=== PATIENT | female | born 1970 | race Caucasian/White ===

== ENCOUNTER 2017-02-13 13:13 | Observation (INO) | payer MEDICAID ==
--- NOTE | 2017-02-13 14:07 | CPEKG ---
Heart Rate: 69 RR Interval: 870 P-R Interval: 180 QRSD Interval: 64 QT Interval: 392 QTC Interval: 420 P Neihart: 46 QRS Neihart: 15 T Wave Neihart: 35 EKG Severity - NORMAL ECG - EKG Impression: SINUS RHYTHM Electronically Signed By: Michael Werner 13-Feb-2017 15:37:33
--- NOTE | 2017-02-13 14:19 | EDPHY ---
H & P Smoking Status: Never smoked <AlphonsoMichael Jose - Last Filed: 02/13/17 14:32> <Joanna Smith - Last Filed: 02/13/17 16:29> Time Seen by Provider: 02/13/17 14:08 HPI/ROS: Chief complaint. Chest pain, shortness of breath HPI. 46-year-old female presents with chest pain that began at about 8:00 p.m. last night. She describes as tightness with radiation to right neck and right shoulder and now to the left shoulder. Some shortness of breath. She felt flushed and warm. She has had vomiting x4 but no diarrhea. She felt "drained" yesterday. There has been quite a bit of stress in the family this past week. No unusual leg pain or swelling. She has not had similar symptoms before. She has a gastric sleeve that was pale placed 3 years ago but she has not had any issues with it. Her discomfort is not worse with breathing, movement, exertion , position ROS Constitutional. no fever/chills, no weakness Eyes. no problems with vision ENT. no sore throat, no nasal drainage Cardiovascular. Chest discomfort Respiratory. Shortness of breath Abdominal. Vomiting . no problems urinating MS. no calf pain/swelling, no neck/back pain, no joint pain Skin. no rash Lymph. no swollen glands Neuro. no headache, no dizziness, no difficulty walking or with speech (Michael Werner) Past Medical/Surgical History: Past medical history gastric sleeve and IUD No significant family history for early coronary artery disease (Michael Werner) Social History: , nonsmoker, no alk (Michael Werner) Physical Exam: General Appearance: Alert pleasant well-developed female mild distress vital signs are stable Eyes: Pupils equal and round no pallor or injection. ENT, Mouth: Mucous membranes are moist. Respiratory: There are no retractions, lungs are clear to auscultation. Cardiovascular: Regular rate and rhythm. Gastrointestinal: Abdomen is soft and nontender, no masses, bowel sounds normal. Neurological: Awake and alert, sensory and motor exams grossly normal. Skin: Warm and dry, no rashes. Musculoskeletal: Neck is supple nontender. Extremities symmetrical, full range of motion. Psychiatric: Patient is oriented X 3, there is no agitation. (Alphonso,Michael S) Constitutional: Initial Vital Signs Temperature (C) 36.6 C 02/13/17 13:17 Heart Rate 85 02/13/17 13:17 Respiratory Rate 18 02/13/17 13:17 Blood Pressure 115/86 H 02/13/17 13:17 O2 Sat (%) 97 02/13/17 13:17 O2 Delivery Mode Room Air Allergies/Adverse Reactions: No Known Allergies Allergy (Unverified 02/13/17 13:17) Home Medications: Medication Instructions Recorded NK [No Known Home Meds] 02/13/17 Medical Decision Making <Michael Werner - Last Filed: 02/13/17 14:32> <Joanna Smith - Last Filed: 02/13/17 16:29> - Diagnostics EKG Interpretation: EKG interpreted by me shows normal sinus rhythm with normal interval and axis. QRS is normal there is no significant ST elevation or depression. No arrhythmia. The rate is 69 (Michael Werner) Imaging Results: Imaging Impressions Chest/Thorax CTA 02/13/17 14:35 Impression: 1. No evidence of thrombopulmonary embolic disease. 2. Mild bronchitis. No pneumonia or effusion. Findings discussed with Emergency Department physician, Dr. Joanna Smith at 15:45. Procedures: IV normal saline, monitor (Michael Werner) ED Course/Re-evaluation: 1500: Care of this patient was transferred to [place] by Dr. Werner at change of shift. 1609: Lab and imaging results reviewed by me: Labs are within normal ranges, D- dimer is negative. CTA indicated mild bronchitis but no additional acute findings. 1618: At the time of my evaluation, the patient is resting comfortably but continues to complain of episodic peristernal chest pain associated with lightheadedness, headache, and diaphoresis; 3-4 episodes today each lasting for 5-10 minutes. She denies any complaints suspicious for infection - no cough, fever, chills, recent cold or flu symptoms. I discussed lab and imaging results with the patient. I did share with her that her chest discomfort may be due to bronchitis. However, given the radiation of her pain and associated nausea and diaphoresis, I suggested that she be admitted for cardiac observation. She is agreeable to this. 3ml IH DuoNeb administered. 324mg PO Aspirin administered. 1628: Consultation with Dr. Bryan Orozco, hospitalist, who accepts admission. ( Joanna Smith) Differential Diagnosis: I considered acute coronary syndrome, pulmonary embolus, pneumothorax, displacement of gastric sleeve, pancreatitis (Michael Werner) - Data Points Laboratory Results: Laboratory Results 02/13/17 14:05 02/13/17 14:05 02/13/17 02/13/17 02/13/17 14:05 14:05 14:05 WBC RBC Hgb Hct MCV MCH MCHC RDW Plt Count MPV Neut % (Auto) Lymph % (Auto) [place] % (Auto) Eos % (Auto) Baso % (Auto) Nucleat RBC Rel Count Absolute Neuts (auto) Absolute Lymphs (auto) Absolute Monos (auto) Absolute Eos (auto) Absolute Basos (auto) Absolute Nucleated RBC Immature Gran % Immature Gran # D-Dimer < 0.27 ug/mLFEU ug/mLFEU (0.00-0.50) Sodium 141 mEq/L mEq/L (134-144) Potassium 4.2 mEq/L mEq/L (3.5-5.2) Chloride 106 mEq/L mEq/L (97-110) Carbon Dioxide 25 mEq/l mEq/l (22-31) Anion Gap 10 mEq/L mEq/L (8-16) BUN 12 mg/dL mg/dL (7-23) Creatinine 0.9 mg/dL mg/dL (0.6-1.0) Estimated GFR > 60 Glucose 93 mg/dL mg/dL (70-100) Calcium 9.5 mg/dL mg/dL (8.5-10.4) Troponin I < 0.012 ng/mL ng/mL (0-0.034) Lipase 69.0 IU/L IU/L (23-300) Beta HCG, Qual NEGATIVE 02/13/17 14:05 WBC 6.44 10^3/uL 10^3/uL (3.80-9.50) RBC 4.91 10^6/uL 10^6/uL (4.18-5.33) Hgb 15.0 g/dL g/dL (12.6-16.3) Hct 44.6 % % (38.0-47.0) MCV 90.8 fL fL (81.5-99.8) MCH 30.5 pg pg (27.9-34.1) MCHC 33.6 g/dL g/dL (32.4-36.7) RDW 12.9 % % (11.5-15.2) Plt Count 307 10^3/uL 10^3/uL (150-400) MPV 8.8 fL fL (8.7-11.7) Neut % (Auto) 59.4 % % (39.3-74.2) Lymph % (Auto) 32.1 % % (15.0-45.0) [place] % (Auto) 6.2 % % (4.5-13.0) Eos % (Auto) 1.4 % % (0.6-7.6) Baso % (Auto) 0.6 % % (0.3-1.7) Nucleat RBC Rel Count 0.0 % % (0.0-0.2) Absolute Neuts (auto) 3.82 10^3/uL 10^3/uL (1.70-6.50) Absolute Lymphs (auto) 2.07 10^3/uL 10^3/uL (1.00-3.00) Absolute Monos (auto) 0.40 10^3/uL 10^3/uL (0.30-0.80) Absolute Eos (auto) 0.09 10^3/uL 10^3/uL (0.03-0.40) Absolute Basos (auto) 0.04 10^3/uL 10^3/uL (0.02-0.10) Absolute Nucleated RBC 0.00 10^3/uL 10^3/uL (0-0.01) Immature Gran % 0.3 % % (0.0-1.1) Immature Gran # 0.02 10^3/uL 10^3/uL (0.00-0.10) D-Dimer Sodium Potassium Chloride Carbon Dioxide Anion Gap BUN Creatinine Estimated GFR Glucose Calcium Troponin I Lipase Beta HCG, Qual Medications Given: Discontinued Medications Sodium Chloride (Ns) 1,000 mls @ 0 mls/hr IV ONCE ONE PRN Reason: Wide Open Stop: 02/13/17 14:36 Last Admin: 02/13/17 14:47 Dose: 1,000 mls Departure <Michael Werner S - Last Filed: 02/13/17 14:32> <Joanna Smith - Last Filed: 02/13/17 16:29> - Departure Disposition: [facility] Inpatient Acute Clinical Impression: Bronchitis, Atypical chest pain Condition: Fair Referrals: NONE *PRIMARY CARE P,. [Primary Care Provider] - As per Instructions Report Scribed for: Joanna Smith Report Scribed by: Naina Bergman Date of Report: 02/13/17 Time of Report: 15:04 <Joanna Smith - Last Filed: 02/13/17 16:29>
[2017-02-13] MEDS ORDERED: NS 1,000 ML IV ONE (14:35)
[2017-02-13 14:43] LABS: % IMMATURE GRANULYOCYTES 0.3 % (0.0-1.1); ABSOLUTE IMMATURE GRANULOCYTES 0.02 10^3/uL (0.00-0.10); ADD DIFF? NO; ADD MORPH? NO; ADD SCAN? NO; ATYPICAL LYMPHOCYTE FLAG 10 (0-99); FRAGMENT RBC FLAG 0 (0-99); HEMATOCRIT 44.6 % (38.0-47.0); LEFT SHIFT FLG 0 (0-99); LIPEMIA HEMOLYSIS FLAG 80 (0-99); MEAN CELL HEMOGLOBIN 30.5 pg (27.9-34.1); MEAN CELL HEMOGLOBIN CONCENTR. 33.6 g/dL (32.4-36.7); MEAN CELL VOLUME 90.8 fL (81.5-99.8); MEAN PLATELET VOLUME 8.8 fL (8.7-11.7); PLATELET CLUMPS FLAG 0 (0-99); PLATELET COUNT 307 10^3/uL (150-400); RED BLOOD CELL COUNT 4.91 10^6/uL (4.18-5.33); RED CELL DISTRIBUTION WIDTH 12.9 % (11.5-15.2)
[2017-02-13 14:49] LABS: ANION GAP 10 mEq/L (8-16); CALCIUM 9.5 mg/dL (8.5-10.4); CARBON DIOXIDE 25 mEq/l (22-31); CHLORIDE 106 mEq/L (97-110); CREATININE 0.9 mg/dL (0.6-1.0); GLOMERULAR FILTRATION RATE > 60; GLUCOSE 93 mg/dL (70-100); POTASSIUM 4.2 mEq/L (3.5-5.2); SODIUM 141 mEq/L (134-144)
[2017-02-13 15:00] LABS: TROPONIN I < 0.012 ng/mL (0-0.034)
[2017-02-13] MEDS ORDERED: ASPIRIN 81 MG CHEWABLE TAB PO ONE (16:22)
[2017-02-13] MEDS ORDERED: ALBUTEROL 3 ML DEYVIAL IH ONE (16:22)
--- NOTE | 2017-02-13 16:52 | PDGENHP ---
History and Physical - Chief Complaint Chest pain - History of Present Illness This is a 46-year-old female with no cardiac risk factors other than a 20 pack- year smoking history but quit a few years back presents to the emergency department with that chest pain. Pain is described as a substernal pressure I was localized and started last night while sitting and finishing her dinner. She does feel like food gets stuck when she swallows. At 1st when the pain started she was not able to take a deep breath. Last night after she had the episode of pain she vomited 4 times which improved her symptoms. She denies any GERD. Today she had recurrent chest pressure and decided to come to the emergency department for further evaluation. History Information - Allergies/Home Medication List Allergies/Adverse Reactions: No Known Allergies Allergy (Unverified 02/13/17 13:17) Home Medications: NK [No Known Home Meds] 02/13/17 [Last Taken Unknown] I have personally reviewed and updated: family history, medical history, social history, surgical history - Past Medical History Additional medical history: Gastric sleeve done in 2012 - Social History Smoking Status: Former smoker (20 pack year smoking history) Alcohol Use: Occasionally Drug Use: None Review of Systems ROS: 10pt was reviewed & negative except for what was stated in HPI & below Physical Exam Temp Pulse Resp BP Pulse Ox 36.6 C 66 17 111/62 94 02/13/17 13:17 02/13/17 14:00 02/13/17 14:00 02/13/17 14:00 02/13/17 14:00 Constitutional: no apparent distress, appears nourished, not in pain Eyes: PERRL, anicteric sclera, EOMI Ears, Nose, Mouth, Throat: moist mucous membranes, hearing normal, ears appear normal, no oral mucosal ulcers Cardiovascular: regular rate and rhythym, no murmur, rub, or gallop, No edema Respiratory: no respiratory distress, no rales or rhonchi, clear to auscultation , No rhonchi Gastrointestinal: normoactive bowel sounds, soft, non-tender abdomen, no palpable masses, No guarding, No rebound Genitourinary: no bladder fullness, no bladder tenderness Skin: warm, normal color, no rashes or abrasions, no fluctuance, no induration, No mottled Musculoskeletal: full muscle strength, no muscle tenderness, normal joint ROM, no joint effusions Neurologic: AAOx3, CN II-XII Intact, No facial droop Psychiatric: interacting appropriately, not anxious, not encephalopathic, thought process linear Lab Data & Imaging Review 02/13/17 14:05 02/13/17 14:05 WBC 6.44 10^3/uL (3.80-9.50) 02/13/17 14:05 RBC 4.91 10^6/uL (4.18-5.33) 02/13/17 14:05 Hgb 15.0 g/dL (12.6-16.3) 02/13/17 14:05 Hct 44.6 % (38.0-47.0) 02/13/17 14:05 MCV 90.8 fL (81.5-99.8) 02/13/17 14:05 MCH 30.5 pg (27.9-34.1) 02/13/17 14:05 MCHC 33.6 g/dL (32.4-36.7) 02/13/17 14:05 RDW 12.9 % (11.5-15.2) 02/13/17 14:05 Plt Count 307 10^3/uL (150-400) 02/13/17 14:05 MPV 8.8 fL (8.7-11.7) 02/13/17 14:05 Neut % (Auto) 59.4 % (39.3-74.2) 02/13/17 14:05 Lymph % (Auto) 32.1 % (15.0-45.0) 02/13/17 14:05 [place] % (Auto) 6.2 % (4.5-13.0) 02/13/17 14:05 Eos % (Auto) 1.4 % (0.6-7.6) 02/13/17 14:05 Baso % (Auto) 0.6 % (0.3-1.7) 02/13/17 14:05 Nucleat RBC Rel Count 0.0 % (0.0-0.2) 02/13/17 14:05 Absolute Neuts (auto) 3.82 10^3/uL (1.70-6.50) 02/13/17 14:05 Absolute Lymphs (auto) 2.07 10^3/uL (1.00-3.00) 02/13/17 14:05 Absolute Monos (auto) 0.40 10^3/uL (0.30-0.80) 02/13/17 14:05 Absolute Eos (auto) 0.09 10^3/uL (0.03-0.40) 02/13/17 14:05 Absolute Basos (auto) 0.04 10^3/uL (0.02-0.10) 02/13/17 14:05 Absolute Nucleated RBC 0.00 10^3/uL (0-0.01) 02/13/17 14:05 Immature Gran % 0.3 % (0.0-1.1) 02/13/17 14:05 Immature Gran # 0.02 10^3/uL (0.00-0.10) 02/13/17 14:05 D-Dimer < 0.27 ug/mLFEU (0.00-0.50) 02/13/17 14:05 Sodium 141 mEq/L (134-144) 02/13/17 14:05 Potassium 4.2 mEq/L (3.5-5.2) 02/13/17 14:05 Chloride 106 mEq/L (97-110) 02/13/17 14:05 Carbon Dioxide 25 mEq/l (22-31) 02/13/17 14:05 Anion Gap 10 mEq/L (8-16) 02/13/17 14:05 BUN 12 mg/dL (7-23) 02/13/17 14:05 Creatinine 0.9 mg/dL (0.6-1.0) 02/13/17 14:05 Estimated GFR > 60 02/13/17 14:05 Glucose 93 mg/dL (70-100) 02/13/17 14:05 Calcium 9.5 mg/dL (8.5-10.4) 02/13/17 14:05 Troponin I < 0.012 ng/mL (0-0.034) 02/13/17 14:05 Lipase 69.0 IU/L (23-300) 02/13/17 14:05 Beta HCG, Qual NEGATIVE 02/13/17 14:05 Imaging Review: CT of the chest was reviewed: Impression: 1. No evidence of thrombopulmonary embolic disease. 2. Mild bronchitis. No pneumonia or effusion. Visualized and Interpreted EKG results: Yes EKG Interpretation: Positive for: normal sinsus rhythm (69 beats per minute). Negative for: ST elevation, ST depression Assessment & Plan Assessment: This is a 46-year-old female with history of gastric sleeve procedure done 4 years ago presents with #substernal chest pain that sounds like esophageal spasm or stricture and less likely cardiac in etiology in the setting of negative troponin and normal EKG -trial GI cocktail -upper GI series and consider GI consultation for endoscopy as indicated Disposition: The patient will be placed in observation. Anticipated length of stay is less than 24 hours.
[2017-02-13] MEDS ORDERED: PROMETHAZINE HCL 25 MG/ML INJ IVP PRN (17:00)
[2017-02-13] MEDS ORDERED: ONDANSETRON DISINTEGRATING 4 MG TAB PO PRN (17:00)
[2017-02-13] MEDS ORDERED: ACETAMINOPHEN 325 MG TAB PO PRN (17:00)
[2017-02-13] MEDS ORDERED: LIDOCAINE 2% VISCOUS 15 ML UDCUP PO ONE (17:05)
[2017-02-13] MEDS ORDERED: HYOSCYAMINE SULFATE 0.125 MG TAB PO ONE (17:05)
[2017-02-13] MEDS ORDERED: MAG HYDROX/AL HYDROX/SIMETH 30 ML UDCUP PO ONE (17:05)
[2017-02-13] MEDS ORDERED: KETOROLAC 15 MG/1 ML SDV IVP ONE (22:15)
[2017-02-13] MEDS ORDERED: oxyCODONE IR 5 MG TAB PO PRN (23:00)
[2017-02-13] MEDS: oxyCODONE IR 5 MG TAB PO PRN (23:30)
[2017-02-14] MEDS: oxyCODONE IR 5 MG TAB PO PRN ×2 (03:28→10:58)
[2017-02-14] MEDS ORDERED: LIDOCAINE 2% VISCOUS 15 ML UDCUP PO ONE (11:23)
[2017-02-14] MEDS ORDERED: MAG HYDROX/AL HYDROX/SIMETH 30 ML UDCUP PO ONE (11:23)
[2017-02-14] MEDS ORDERED: HYOSCYAMINE SULFATE 0.125 MG TAB PO ONE (11:23)
[2017-02-14] MEDS ORDERED: FAMOTIDINE 20 MG TAB PO SCH (11:30)
[2017-02-14 13:11] VITALS: BP 97/73; PULSE 59; RESP 18; TEMP 98.3; O2SAT 93
--- NOTE | 2017-02-15 05:39 | GDS ---
[f rep st] DISCHARGE SUMMARY DISCHARGE DIAGNOSES: 1. Atypical chest pain. 2. Moderate hiatal hernia. 3. History of gastric sleeve procedure in 2012. 4. Esophagitis. CONSULTANTS: None. IMAGING STUDIES/PROCEDURES: 1. CT pulmonary angiogram performed February 13, 2017, was negative for pulmonary embolism and showed ju st mild bronchitis. No pneumonia or effusions were noted. 2. Upper GI study February 13, 2017 revealed evidence of a prior gastric sleeve procedure without strict ure. There was also a moderate size hiatal hernia with free reflux into the distal esophagus with as sociated esophagitis. HISTORY: For details, please see the history and physical dated January 2017. In brief, the patient is a 46-year-old female with a history of prior gastric sleeve procedure, as well as a 20 pack-year sm oking history presents to the emergency department with substernal chest pain. She was admitted to the hospital for further evaluation. HOSPITAL COURSE: Patient was admitted to the observation unit. Her pain sounded more considered co nsistent with a gastrointestinal etiology rather than cardiac. She had a nonischemic EKG. Troponin was negative x2. CT angiogram is negative for PE. She underwent an upper GI series which revealed a moderate hiatal hernia with active reflux and evidence of esophagitis. This is most likely the s ource of her substernal chest pain. She started on a proton pump inhibitor and it is recommended sh e have both GI and General Surgery follow up in the outpatient setting to fully manage her esophagit is and consider repair of her symptomatic hiatal hernia. She was treated successfully with GI cockt ail and Pepcid with improvement in her symptoms. DISPOSITION: Patient is discharged home in stable condition. FOLLOWUP: 1. , GI [facility], for further management of her esophagitis related to her hiat al hernia. 2. Dr. Nida Barrera, general surgery, to discuss possible repair of her symptomatic hiatal hernia. DISCHARGE MEDICATIONS: Please see [facility] for complete updated outpatient medication list. New medications on discharge include: Protonix 40 mg p.o. daily, #90, no refills and senna docusate 1 p.o. b.i.d. p.r.n. constipation. /[id number]/MODL
== END 2017-02-14 13:25 | disposition home or self-care (01) ==
LOC: F1N 18:15
PROVIDERS: ADMIT Family Medicine; ATTEND Family Medicine
DX: K20.9 Esophagitis, unspecified (principal); K44.9 Diaphragmatic hernia without obstruction or gangrene; Z87.891 Personal history of nicotine dependence; Z98.84 Bariatric surgery status
CPT/HCPCS: 71275; 74240; 93005; G0378; J1885

== ENCOUNTER 2017-04-12 08:07 | Inpatient (IN) | payer MEDICAID ==
--- NOTE | 2017-04-10 10:27 | GHP ---
[f rep st] PREOP HISTORY AND PHYSICAL DATE OF ADMISSION: 04/12/2017 DATE OF SURGERY: 04/12/2017 CHIEF COMPLAINT: Hiatal hernia, status post sleeve gastrectomy. HISTORY OF PRESENT ILLNESS: The patient is a 46-year-old woman who presented to the office with a c hief complaint of a hiatal hernia. Her symptoms 1st began on 02/12/2017 when she developed acute on set of chest pain and shortness of breath. This was associated with nausea and diaphoresis which la sted about 5-10 minutes and resolved spontaneously. She experienced 3-4 episodes during that day. She presented to the emergency room where a cardiovascular workup was negative. She had an upper GI performed on 02/13/2017 which showed a moderate sized hiatal hernia with free reflux into the dista l esophagus with associated esophagitis. Since her hospital stay, she has improvement of her sympto ms. The chest pain is 4/10 and is worse after eating. She had a sleeve gastrectomy performed in in [place]. She takes Protonix without relief of her symptoms. She denies any heartburn. PAST MEDICAL HISTORY: No pertinent. PAST SURGICAL HISTORY: Sleeve gastrectomy as above. MEDICATIONS: Pantoprazole. ALLERGIES: No known drug allergies. FAMILY HISTORY: No significant family history. SOCIAL HISTORY: She is with 2 children. She denies tobacco, alcohol or recreational drug u se. REVIEW OF SYSTEMS: Significant for headaches. Otherwise, a 10-point review of systems is negative aside from HPI. PHYSICAL EXAMINATION: GENERAL: Well-developed, well-nourished woman in no acute distress, accompan ied by . HEENT: Normocephalic, atraumatic. No hearing deficits. Pupils equal and round. No scleral icterus. Mucous membranes moist. NECK: Trachea midline. RESPIRATORY: Clear to auscul tation bilaterally. No increased work of breathing. CARDIOVASCULAR: Regular rate and rhythm. No peripheral edema. ABDOMEN: Bowel sounds present. Soft, nondistended, nontender to palpation. SKI N: Warm and dry. MUSCULOSKELETAL: Normal gait. Normal nails. PSYCH: Mood and affect normal. N EURO: Grossly intact. IMPRESSION AND PLAN: 46-year-old woman status post sleeve gastrectomy with a hiatal hernia. We dis cussed robotic, possible laparoscopic, possible open hiatal hernia repair. It would be difficult to perform a fundoplication given her previous sleeve gastrectomy. We discussed risks of surgery incl uding, but not limited to, heart attack, stroke, blood clots or . We discussed risk of infecti on, bleeding recurrence, damage to surrounding structures or stricture. She understands the risks a nd would like to proceed. She is scheduled for a robotic hiatal hernia repair on 04/12/2017. She a nd her partner had their questions answered to their satisfaction, understand the risks of the proce dure. The patient was additionally seen by Dr. Nida Barrera who agrees with the above impression and plan. /[id number]/MODL
[~2017-04-12 08:07] MED LIST: BUPIVACAINE 0.5% 30 ML SDV ONE
[2017-04-12] MEDS ORDERED: ceFAZolin 2 GM/DEXTROSE 100 ML IV ONE (08:30)
[2017-04-12] MEDS ORDERED: LR 1,000 ML IV ONE (08:55)
[2017-04-12] MEDS ORDERED: LIDOCAINE 1% 2 ML INJ ID PRN (08:55)
--- NOTE | 2017-04-12 09:44 | PDANEPAE ---
ANE History of Present Illness Reina GERMAN Past Medical History - Cardiovascular History Hx Hypertension: No Hx Arrhythmias: No Hx Chest Pain: No Hx Coronary Artery / Peripheral Vascular Disease: No Hx CHF / Valvular Disease: No Hx Palpitations: No - Pulmonary History Hx COPD: No Hx Asthma/Reactive Airway Disease: No Hx Recent Upper Respiratory Infection: No Hx Oxygen in Use at Home: No Hx Sleep Apnea: No Sleep Apnea Screening Result - Last Documented: Negative - Neurologic History Hx Cerebrovascular Accident: No Hx Seizures: No Hx Dementia: No - Endocrine History Hx Diabetes: No - Renal History Hx Renal Disorders: No - Liver History Hx Hepatic Disorders: No - Neurological & Psychiatric Hx Hx Neurological and Psychiatric Disorders: No - Cancer History Hx Cancer: No - Congenital Disorder History Hx Congenital Disorders: No - GI History Hx Gastrointestinal Disorders: Yes Gastrointestinal History Comment: hiatal hernia. gastric sleeve surgery. relfux - Other Health History Other Health History: wears glasses. eye infection last week- took antibiotics and it is resolved - Chronic Pain History Chronic Pain: No - Surgical History Prior Surgeries: gastric sleeve surgery 2012 ANE Review of Systems Review of systems is: negative - Exercise capacity Exercise capacity: >=4 METS METS (RN): 4 METS ANE Patient History - Allergies Allergies/Adverse Reactions: No Known Allergies Allergy (Verified 04/11/17 13:26) - Home Medications Home Medications: Pantoprazole Sodium [Protonix] 04/11/17 [Last Taken Unknown] - NPO status NPO Status: no food or drink >8 hours NPO Since - Liquids (Date): 04/11/17 NPO Since - Liquids (Time): 22:30 NPO Since - Solids (Date): 04/11/17 NPO Since - Solids (Time): 19:30 - Anes Hx Anes Hx: no prior problems - Smoking Hx Smoking Status: Former smoker - Family Anes Hx Family Anes Hx: none Family Hx Anesthesia Complications: none ANE Labs/Vital Signs - Vital Signs Blood Pressure: 107/75 Heart Rate: 68 Respiratory Rate: 16 O2 Sat (%): 95 Height: 167.64 cm Weight: 77.111 kg ANE Physical Exam - Airway Neck exam: FROM Mallampati Score: Class 1 Mouth exam: normal dental/mouth exam - Pulmonary Pulmonary: no respiratory distress - Cardiovascular Cardiovascular: regular rate and rhythym - ASA Status ASA Status: II ANE Anesthesia Plan Anesthesia Plan: general endotracheal anesthesia
[2017-04-12] MEDS ORDERED: MIDAZOLAM 2 MG/2 ML VIAL IVP ONE (09:45)
--- NOTE | 2017-04-12 09:53 | PDHPUP ---
History & Physical Update H&P update statement: This history and physical update is based on an assessment of the patient which was completed after admission or registration (within 24 hours), but prior to the surgery/procedure. H&P update: H&P reviewed & patient examined, no change in patient's condition since H&P completed
[2017-04-12] MEDS ORDERED: ONDANSETRON 4 MG/2 ML VIAL ONE ×2 (10:16→12:58)
[2017-04-12] MEDS ORDERED: LIDOCAINE 2% 100 MG/5 ML SYR ONE (10:16)
[2017-04-12] MEDS ORDERED: SUGAMMADEX SODIUM 200 MG/2 ML VIAL IVP ONE (10:16)
[2017-04-12] MEDS ORDERED: ROCURONIUM 50 MG/5 ML VIAL ONE (10:16)
[2017-04-12] MEDS ORDERED: DEXAMETHASONE 4 MG/ML VIAL ONE (10:16)
[2017-04-12] MEDS ORDERED: HYDROmorphONE/DILAUDID 2 MG/ML INJ ONE (10:17)
[2017-04-12] MEDS ORDERED: PROPOFOL 200 MG/20 ML VIAL ONE (10:17)
[2017-04-12] MEDS ORDERED: fentaNYL 100 MCG/2 ML INJ ONE ×2 (10:17→12:42)
[2017-04-12] MEDS ORDERED: ROCURONIUM 100 MG/10 ML VIAL ONE (11:00)
[2017-04-12] MEDS ORDERED: PHENYLEPHRINE HCL 100 MCG/ML SYR ONE (11:28)
--- NOTE | 2017-04-12 12:26 | POSTOPPROG ---
Post Op Note Date of Operation: 04/12/17 Surgeon: Nida Barrera Voice Network Administrator: rhea tinoco Anesthesiologist: jonathan Anesthesia: GET(General Endotracheal) Pre-op Diagnosis: hiatal hernia Post-op Diagnosis: hiatal hernia with iatrogenic pneumo Indication: 46yo F with epigastric pain and nausea Procedure: davinci hiatal hernia repair Findings: incarcerated hiatal hernia Inf/Abcess present in the surg proc area at time of surgery?: No Depth: Organ Space EBL: 50-100 Complications: none immediately postoperatively Specimen(s): none
[2017-04-12] MEDS ORDERED: ACETAMINOPHEN 500 MG TAB PO PRN (12:40)
[2017-04-12] MEDS ORDERED: ONDANSETRON 4 MG/2 ML VIAL IVP PRN (12:40)
[2017-04-12] MEDS ORDERED: OXYCODONE/APAP 5/325 TAB PO PRN (12:40)
[2017-04-12] MEDS ORDERED: MEPERIDINE 25 MG/ML SYR IVP PRN (12:40)
[2017-04-12] MEDS ORDERED: NALOXONE HCL 0.4 MG/ML INJ IVP PRN (12:40)
[2017-04-12] MEDS ORDERED: HYDROCODONE/APAP 5/325 TAB PO PRN (12:40)
[2017-04-12] MEDS ORDERED: PROMETHAZINE HCL 25 MG/ML INJ IVP PRN (12:40)
[2017-04-12] MEDS ORDERED: DEXAMETHASONE 4 MG/ML VIAL IVP PRN (12:40)
--- NOTE | 2017-04-12 12:41 | POSTANESTH ---
Post Anesthetic Evaluation Cardiovascular Status: Normal, Stable, Similar to Pre-Op Cond Respiratory Status: Normal, Stable, Similar to Pre-op Cond. Level of Consciousness/Mental Status: Can Participate in Eval, Mildly Sleepy, Arousable Pain Control: Adequate, Prn Tx Ordered Nausea/Vomiting Control: Adequate, Prn Tx Ordered Complications Possibly Related to Anesthesia: None Noted
[2017-04-12] MEDS ORDERED: HYDROmorphONE/DILAUDID 1 MG/ML SYR ONE (12:42)
[2017-04-12] MEDS: fentaNYL 100 MCG/2 ML INJ IVP PRN ×2 (12:43→12:50)
[2017-04-12] MEDS: HYDROmorphONE/DILAUDID 1 MG/ML SYR IVP PRN ×4 (12:46→15:57)
[2017-04-12] MEDS: ONDANSETRON 4 MG/2 ML VIAL IVP PRN ×2 (14:17→19:03)
[2017-04-12] MEDS: NS 1,000 ML IV SCH (14:18)
[2017-04-12] MEDS ORDERED: HYDROmorphONE/DILAUDID 1 MG/ML SYR IVP PRN (16:18)
[2017-04-12] MEDS: KETOROLAC 15 MG/1 ML SDV IVP SCH ×2 (16:36→23:48)
[2017-04-12] MEDS: oxyCODONE IR 5 MG TAB PO PRN ×3 (16:37→23:53)
[2017-04-13] MEDS: NS 1,000 ML IV SCH ×2 (00:22→11:05)
[2017-04-13] MEDS: oxyCODONE IR 5 MG TAB PO PRN ×5 (04:42→22:04)
[2017-04-13] MEDS: KETOROLAC 15 MG/1 ML SDV IVP SCH ×3 (05:05→18:10)
[2017-04-13 05:12] LABS: % IMMATURE GRANULYOCYTES 0.4 % (0.0-1.1); ABSOLUTE IMMATURE GRANULOCYTES 0.04 10^3/uL (0.00-0.10); ADD DIFF? NO; ADD MORPH? NO; ADD SCAN? NO; ATYPICAL LYMPHOCYTE FLAG 0 (0-99); FRAGMENT RBC FLAG 0 (0-99); HEMATOCRIT 36.3 % (38.0-47.0); HEMOGLOBIN 12.1 g/dL (12.6-16.3); LEFT SHIFT FLG 10 (0-99); LIPEMIA HEMOLYSIS FLAG 80 (0-99); MEAN CELL HEMOGLOBIN 30.7 pg (27.9-34.1); MEAN CELL HEMOGLOBIN CONCENTR. 33.3 g/dL (32.4-36.7); MEAN CELL VOLUME 92.1 fL (81.5-99.8); PLATELET CLUMPS FLAG 0 (0-99); PLATELET COUNT 225 10^3/uL (150-400); RED BLOOD CELL COUNT 3.94 10^6/uL (4.18-5.33); RED CELL DISTRIBUTION WIDTH 12.9 % (11.5-15.2)
[2017-04-13 05:31] LABS: ANION GAP 9 mEq/L (8-16); CALCIUM 8.1 mg/dL (8.5-10.4); CARBON DIOXIDE 22 mEq/l (22-31); CHLORIDE 109 mEq/L (97-110); CREATININE 0.8 mg/dL (0.6-1.0); GLOMERULAR FILTRATION RATE > 60; GLUCOSE 92 mg/dL (70-100); POTASSIUM 4.2 mEq/L (3.5-5.2); SODIUM 140 mEq/L (134-144)
[2017-04-13] MEDS ORDERED: PANTOPRAZOLE SODIUM 40 MG in NS 100 ML IV SCH (09:00)
[2017-04-13] MEDS: ONDANSETRON 4 MG/2 ML VIAL IVP PRN (09:36)
[2017-04-13] MEDS ORDERED: LORazepam 2 MG/ML INJ IVP PRN (16:56)
--- NOTE | 2017-04-13 16:59 | SOAPPROG ---
SOAP Progress Note Assessment/Plan: Assessment: POD # 1 s/p hiatal hernia repair CXR with no pneumo and small free air Has some pain with breakfast but no pain with lunch Chest is uncomfortable Passing flatus CXR in am. Labs in am S: Lying in bed. appears comfortable but feels like upper abdominal muscles occasionally seize Incisions cdi Lungs ctab, small click by left inferior field Regular rate bs present, soft and surprisingly not tender to palpation Plan: 04/13/17 16:57 Objective: Vital Signs Temp Pulse Resp BP Pulse Ox 37.1 C 64 16 97/56 L 92 04/13/17 15:47 04/13/17 15:47 04/13/17 15:47 04/13/17 15:47 04/13/17 15:47 Laboratory Results 04/13/17 04:13 04/13/17 04:13 04/12/17 04/13/17 04/14/17 05:59 05:59 05:59 Intake Total 2642 320 Output Total 1200 500 Balance 1442 -180 ICD10 Worksheet Patient Problems: Problems Problem Status Onset Atypical chest pain Acute Bronchitis Acute
[2017-04-14] MEDS: KETOROLAC 15 MG/1 ML SDV IVP SCH ×2 (00:12→07:04)
[2017-04-14 04:49] LABS: % IMMATURE GRANULYOCYTES 0.5 % (0.0-1.1); ABSOLUTE IMMATURE GRANULOCYTES 0.04 10^3/uL (0.00-0.10); ADD DIFF? NO; ADD MORPH? NO; ADD SCAN? NO; ATYPICAL LYMPHOCYTE FLAG 0 (0-99); FRAGMENT RBC FLAG 0 (0-99); HEMATOCRIT 36.9 % (38.0-47.0); LEFT SHIFT FLG 0 (0-99); LIPEMIA HEMOLYSIS FLAG 80 (0-99); MEAN CELL HEMOGLOBIN 30.3 pg (27.9-34.1); MEAN CELL HEMOGLOBIN CONCENTR. 32.5 g/dL (32.4-36.7); MEAN CELL VOLUME 93.2 fL (81.5-99.8); MEAN PLATELET VOLUME 8.9 fL (8.7-11.7); PLATELET CLUMPS FLAG 0 (0-99); PLATELET COUNT 208 10^3/uL (150-400); RED BLOOD CELL COUNT 3.96 10^6/uL (4.18-5.33); RED CELL DISTRIBUTION WIDTH 13.2 % (11.5-15.2)
[2017-04-14] MEDS ORDERED: ONDANSETRON DISINTEGRATING 4 MG TAB PO PRN (06:53)
[2017-04-14] MEDS: PANTOPRAZOLE SODIUM 40 MG TAB PO SCH (08:25)
[2017-04-14] MEDS: oxyCODONE IR 5 MG TAB PO PRN ×4 (08:25→20:49)
--- NOTE | 2017-04-14 08:54 | SOAPPROG ---
<Elin Eason - Last Filed: 04/14/17 10:26> SOAP Progress Note Assessment/Plan: Assessment: POD #2 s/p robotic hiatal hernia repair. iatrogenic L ptx CXR no pneumo. increased free air under diaphragm Abdominal CT to further evaluate free air - may just be post-op and positional Increased epigastreic/substernal pain this morning with ambulation PO pain meds Regular diet Passing flatus Dispo: maybe home this weekend if CT ok and pain controlled. Seen c Dr. Barrera. Discussed c radiology S: Slept well overnight but increased pain this morning with walking. Eating well. Passing flatus. [place] great until this am O: Just returned from a walk with PT- now lying in bed. appears uncomfortable No increased WOB, CTAB RRR Bs present, soft, nontender. Incisions CDI Objective: Vital Signs Temp Pulse Resp BP Pulse Ox 37.3 C 88 18 121/80 H 92 04/14/17 08:00 04/14/17 08:00 04/14/17 08:00 04/14/17 08:00 04/14/17 08:00 Laboratory Results 04/14/17 04:13 04/13/17 04:13 04/13/17 04/14/17 04/15/17 05:59 05:59 05:59 Intake Total 2642 1984 Output Total 1200 800 700 Balance 1442 1185 -700 ICD10 Worksheet Patient Problems: Problems Problem Status Onset Atypical chest pain Acute Bronchitis Acute <Nida Barrera - Last Filed: 04/14/17 12:21> SOAP Progress Note Assessment/Plan: Assessment: Plan: 04/14/17 12:21 CT without leak. Likely post op air. Feeling much improved. Normal vitals. WBC wnl. Will monitor. Objective: Vital Signs Temp Pulse Resp BP Pulse Ox 36.8 C 79 18 120/75 93 04/14/17 10:56 04/14/17 10:56 04/14/17 10:56 04/14/17 10:56 04/14/17 10:56 Laboratory Results 04/14/17 04:13 04/13/17 04:13 04/13/17 04/14/17 04/15/17 05:59 05:59 05:59 Intake Total 2642 1985 Output Total 1200 800 700 Balance 1442 1185 -700
[2017-04-14] MEDS: IBUPROFEN 600 MG TAB PO PRN ×2 (11:46→17:50)
[2017-04-14] MEDS: LORazepam 1 MG TAB PO PRN (21:42)
[2017-04-15] MEDS: oxyCODONE IR 5 MG TAB PO PRN ×4 (00:58→19:21)
[2017-04-15] MEDS: IBUPROFEN 600 MG TAB PO PRN ×3 (00:59→16:40)
[2017-04-15] MEDS: PANTOPRAZOLE SODIUM 40 MG TAB PO SCH (07:48)
--- NOTE | 2017-04-15 08:23 | GOP ---
[f rep st] OPERATIVE REPORT DATE OF OPERATION: 04/12/2017 SURGEON: Nida Barrera MD ROTOR ASSEMBLER: Saji King MD., who was requested by my presence for timely completion of the case. ANESTHESIA: General. ANESTHESIOLOGIST: Peña Jama MD. PREOPERATIVE DIAGNOSIS: Hiatal hernia. POSTOPERATIVE DIAGNOSIS: Hiatal hernia. PROCEDURE PERFORMED: DaVinci hiatal hernia repair. FINDINGS: Incarcerated hiatal hernia with the stomach adhered to the pleura. SPECIMENS: None. ESTIMATED BLOOD LOSS: 50 cc. INDICATIONS: The patient is a 46-year-old woman who underwent a gastric sleeve in [place]. She then developed symptoms and upper GI workup was obtained, which showed a hiatal hernia. She presents for repair. DESCRIPTION OF PROCEDURE: The patient was brought into the operating room, placed supine on the table, and general anesthesia was administered. Her abdomen was prepped and draped in the usual sterile fashion. I infiltrated all sites with 0.5% Marcaine prior to making incisions. I made an incision above her umbilicus. I inserted the Veress needle. It passed the hanging drop test. Her abdomen insufflated easily to a pressure of 15 mmHg. I placed a trocar at this site. I placed a camera and there were no injuries from Veress needle placement. Under direct vision I placed a trocar in the left upper quadrant, the left pericolic gutter, right upper quadrant, and right pericolic gutter. The robot was docked. The inserted instruments under direct vision. I moved to the console. I used the liver retractor to identify the hiatus. An oral surgery assistant grasper was placed in the left pericolic gutter. I explored her abdomen. She had a few adhesions from her previous surgery but none of these interfered with her current operative plan. I was able to grasp her stomach and retract it, Using the Harmonic, I dissected filmy attachments in order to pull the stomach back down into the abdominal cavity. Since the stomach was in the chest, dissection continued into the hiatus. On the left lateral edge, the stomach was adhered to the hernia sac and also to the pleura. I continued dissecting this and I did visualize her lung. We turned the insufflation down and allowed her body time to recover from the likely pneumothorax. She was hemodynamically stable. We proceeded with the surgery, continued dissection so that the entire stomach and sleeve were brought back down into the abdominal cavity. I was able to dissect around the esophagus so that the entire structure was free. The stomach did have a different shape due to the previous gastric sleeve. Once the stomach was free, I then was able to close the hiatus with interrupted silk sutures. I examined the stomach and looked for areas that I could tack the stomach to the diaphragm but due to the shape of the stomach it appeared that it was making the stomach fold in half, I elected not to tack it to the diaphragm. I placed a red rubber catheter next to the esophagus that I could use to evacuate the air in her pleural cavity. There was a small bleeder on the liver bed which was controlled with electrocautery. Hemostasis was achieved. Suction irrigation performed. No injuries were noted. I undocked the robot and removed the trocars under direct vision. I allowed the abdomen to desufflate. The red rubber exited the remaining trocar and we evacuated the remaining air slowly through a Eugene syringe and slowly removed the red rubber catheter. All port sites were closed with 4-0 Monocryl. Dermabond applied. She was awakened in the operating room, extubated, transferred to PACU in stable condition. Postoperative chest x-ray was performed which did not show evidence of pneumothorax. /[id number]/MODL MTDD
[2017-04-15] MEDS ORDERED: PROMETHAZINE HCL 25 MG/ML INJ IVP PRN (08:49)
--- NOTE | 2017-04-15 08:52 | SOAPPROG ---
SOAP Progress Note Assessment/Plan: Assessment: s/p hiatal hernia repair for incarcerated hiatal hernia with iatrogenic pneumothorax overall better but nausea this am Will monitor S:nausea this am after pain meds and coffee O: Lungs CTAB Regular rate BS present Soft appropriately tender Incisions cdi Plan: 04/14/17 12:21 Objective: Vital Signs Temp Pulse Resp BP Pulse Ox 36.9 C 70 14 116/72 94 04/15/17 07:11 04/15/17 07:11 04/15/17 07:11 04/15/17 07:11 04/15/17 07:11 Laboratory Results 04/14/17 04:13 04/13/17 04:13 04/14/17 04/15/17 04/16/17 05:59 05:59 05:59 Intake Total 1985 Output Total 800 700 Balance 1185 -700 ICD10 Worksheet Patient Problems: Problems Problem Status Onset Atypical chest pain Acute Bronchitis Acute
[2017-04-15] MEDS: LORazepam 1 MG TAB PO PRN (21:01)
[2017-04-16] MEDS: oxyCODONE IR 5 MG TAB PO PRN ×3 (00:10→08:09)
[2017-04-16 04:00] VITALS: RESP 14
[2017-04-16 07:33] VITALS: BP 116/80; PULSE 77; TEMP 99.9; O2SAT 93
[2017-04-16] MEDS: PANTOPRAZOLE SODIUM 40 MG TAB PO SCH (08:02)
--- NOTE | 2017-04-16 10:44 | SOAPPROG ---
SOAP Progress Note Assessment/Plan: Assessment: s/p hiatal hernia repair for incarcerated hiatal hernia with iatrogenic pneumothorax much improved dc home S:no nausea. pain controlled O: Lungs CTAB Regular rate BS present Soft appropriately tender Incisions cdi fine rash over abdomen - chloroprep? Plan: 04/14/17 12:21 04/16/17 10:43 Objective: Vital Signs Temp Pulse Resp BP Pulse Ox 37.7 C 77 14 116/80 93 04/16/17 07:31 04/16/17 07:31 04/16/17 07:31 04/16/17 07:31 04/16/17 07:31 Laboratory Results 04/14/17 04:13 04/13/17 04:13 04/15/17 04/16/17 04/17/17 05:59 05:59 05:59 Intake Total 200 Output Total 700 Balance -700 200 ICD10 Worksheet Patient Problems: Problems Problem Status Onset Atypical chest pain Acute Bronchitis Acute
--- NOTE | 2017-04-19 04:34 | GDS ---
[f rep st] DISCHARGE SUMMARY ADMITTING DIAGNOSIS: Hiatal hernia. SECONDARY DIAGNOSES: None. REASON FOR ADMISSION: The patient is a 46-year-old woman who experienced chest pain and was found t o have a hiatal hernia. She was admitted for surgical intervention, pain control, and observation. HOSPITAL COURSE: She was taken to the operating room on 04/12/2017 for robotic hiatal hernia repair . At the time of surgery, the stomach was incarcerated and adhered to the pleura. A chest x-ray in the recovery room showed no evidence of pneumothorax. On postoperative day #1 a repeat x-ray showe d minimal free air with no evidence of pneumo. On postop day #2, x-ray showed an increase in the pn eumoperitoneum and therefore an abdominal CT was ordered. There was no evidence of a leak and by po stoperative day #4 she was advanced to a regular diet. Her pain was controlled with oral pain medic ation. She was ambulating independently, and was ready for discharge. DISCHARGE MEDICATIONS: She was sent home with prescription for Ativan, Zofran, and Oxy IR. She was instructed to resume home medicines. Please see EMR for further detail. DISCHARGE INSTRUCTIONS AND FOLLOWUP: She will follow up with Dr. Nida Barrera in 10 days. She may s hower. She will avoid heavy lifting, pushing, or pulling for 2 weeks. She understands to call our office with any worsening symptoms, questions, or concerns. /[id number]/MODL
== END 2017-04-16 12:21 | disposition home or self-care (01) | DRG 328 ==
LOC: FSGY 08:07 → F3E 12:19
PROVIDERS: ADMIT Surgery; ATTEND Surgery
DX: K44.0 Diaphragmatic hernia with obstruction, without gangrene (principal); Z98.84 Bariatric surgery status
CPT/HCPCS: J0690; J1100; J1170; J1885; J2001; J2060; J2250; J2370; J2405; J2550; J2704; J3010

== ENCOUNTER → 2017-05-12 | Outpatient (CLI) | payer MEDICAID | LOC: FIMAGING 13:18 | PROVIDERS: ATTEND Surgery | DX: K44.9 Diaphragmatic hernia without obstruction or gangrene (principal) ==

== ENCOUNTER 2019-03-14 14:31 | Emergency (ER) | payer MEDICAID | END 2019-03-14 17:20 | disposition home or self-care (01) ==